=== PATIENT | female | born 1985 | race African-American/Black ===

== ENCOUNTER 2024-07-30 12:18 | Emergency (ER) | payer BC, OTHER ==
[~2024-07-30] VITALS: Ht 177.8 cm; Wt 71.1 kg
[2024-07-30 13:33] VITALS: BP 126/91; PULSE 90; RESP 16; TEMP 97.5; O2SAT 98
[2024-07-30] MEDS ORDERED: AZIT-185 PO (13:47)
== END 2024-07-30 14:14 | disposition home or self-care (01) ==
LOC: ER 12:18
DX: J02.9 Acute pharyngitis, unspecified (principal)